=== PATIENT | female | born 1955 | race Caucasian/White ===

== ENCOUNTER → 2020-03-15 | Outpatient (CLI) | payer MEDICARE ==
--- NOTE | 2020-03-16 09:39 | Diagnostic Imaging Report ---
EXAM: BONE DXA DUAL ENERGY DATE: 03/15/2020 9:50 AM COMPARISON: None HISTORY: Screening for osteoporosis TECHNIQUE: Dual X-ray Absorptiometry was performed. Bone mineral density (BMD), T-score (young normals), and Z-score (age-matched normals) are reported. QUALITY: The study is technically adequate. FINDINGS: Left hip femoral neck bone mineral density: 0.680 g/cm2, T-score is -1.5 Z-score is 0. Left hip total bone mineral density: 0.768 g/cm2, T-score is -1.4, Z-score is -0.2. Lumbar spine total bone mineral density: 0.855 gm/cm2, T-score is -1.7, Z-score is 0.1. IMPRESSION: Bone mineralization by WHO criteria is osteopenia, the fracture risk is increased. The 10-year probability for major osteoporotic fracture is not reported because patient treated for osteoporosis Signed by: Dr. Dennis Bernal M.D. on 03/16/2020 9:35 AM
== END ==
LOC: DX 09:16
PROVIDERS: ATTEND Internal Medicine Rheumatology
DX: Z78.0 Asymptomatic menopausal state (principal)
CPT/HCPCS: 77080